=== PATIENT | female | born 1955 | race Caucasian/White ===

== ENCOUNTER → 2017-05-03 | Outpatient (CLI) | payer BC ==
[~2017-05-03] MED LIST: DABI150C PO; DILT120C80 PO; GARL1CAP3 PO; MAGN100T PO; MESA0.372 PO; MULT-208 PO; OMEG-33 PO; PHYT1LIQ MC; PROP225T2 PO
[2017-05-04 20:02] LABS: FREE T4 1.18 ng/dL (0.76-1.46); THYROID STIM HORMONE (TSH) 1.041 uIU/mL (0.358-3.740)
== END | disposition home or self-care (01) ==
LOC: LAB 09:33
PROVIDERS: ATTEND Internal Medicine
DX: G47.33 Obstructive sleep apnea (adult) (pediatric) (principal); R53.82 Chronic fatigue, unspecified; D89.89 Other specified disorders involving the immune mechanism, not elsewhere classified; R65.10 Systemic inflammatory response syndrome (SIRS) of non-infectious origin without acute organ dysfunction; Z77.120 Contact with and (suspected) exposure to mold (toxic)
CPT/HCPCS: 36415; 80061; 82306; 82607; 82728; 83540; 83550; 84439; 84443; 84481; 84630; 86140

== ENCOUNTER → 2017-05-30 | Outpatient (CLI) | payer BC ==
[2017-05-30 09:48] LABS: BASO # 0.1 x10^3/uL (0.0-0.2); BASO % 1 % (0-3); EOS # 0.2 x10^3/uL (0.0-0.7); EOS % 2 % (0-3); HEMATOCRIT 43.1 % (36.0-47.0); HEMOGLOBIN 14.1 g/dL (12.0-15.5); LYMPH # 1.3 x10^3/uL (1.0-4.8); LYMPH % 16 % (24-48); MEAN CORPUSCULAR HEMOGLOBIN 29 pg (25-35); MEAN CORPUSCULAR HGB CONC 33 g/dL (31-37); MEAN CORPUSCULAR VOLUME 89 fL (79-100); MONO # 0.5 x10^3/uL (0.0-1.1); MONO % 6 % (0-9); NEUT # 6.5 x10^3uL (1.8-7.7); NEUT % 75 % (31-73); PLATELET COUNT 261 x10^3/uL (140-400); RED BLOOD COUNT 4.87 x10^6/uL (3.50-5.40); RED CELL DISTRIBUTION WIDTH 14.5 % (11.5-14.5); WHITE BLOOD COUNT 8.6 x10^3/uL (4.0-11.0)
== END | disposition home or self-care (01) ==
LOC: LAB 08:51
PROVIDERS: ATTEND Nurse Practitioner Family
DX: R79.82 Elevated C-reactive protein (CRP) (principal); E61.1 Iron deficiency; Z85.3 Personal history of malignant neoplasm of breast
CPT/HCPCS: 36415; 82728; 83540; 83550; 85027; 86140

== ENCOUNTER → 2017-11-08 | Outpatient (CLI) | payer BC ==
[2017-11-08 12:53] LABS: C REACTIVE PROTEIN 2.9 mg/L (0-3.3)
[2017-11-09 12:10] LABS: INSULIN LEVEL 6.9 uIU/mL (2.6-24.9)
[2017-11-10 06:13] LABS: HOMOCYTSINE LEVEL 8.5 umol/L (0.0-15.0)
== END | disposition home or self-care (01) ==
LOC: LAB 10:27
PROVIDERS: ATTEND General Practice
DX: I48.0 Paroxysmal atrial fibrillation (principal); G62.9 Polyneuropathy, unspecified; K50.90 Crohn's disease, unspecified, without complications; G47.33 Obstructive sleep apnea (adult) (pediatric); R53.83 Other fatigue; R79.82 Elevated C-reactive protein (CRP); F17.200 Nicotine dependence, unspecified, uncomplicated; Z77.018 Contact with and (suspected) exposure to other hazardous metals
CPT/HCPCS: 36415; 82607; 82728; 82947; 83036; 83090; 83525; 83540; 83550; 86140

== ENCOUNTER 2020-11-24 07:33 | Emergency (ER) | payer MEDICARE, BC ==
[~2020-11-24] VITALS: Ht 167.6 cm; Wt 72.7 kg
[~2020-11-24 07:33] MED LIST changes: -DILT120C80 PO; +DILT120C99 PO
--- NOTE | 2020-11-24 07:50 | PHYS DOC ---
Past History Past Medical History: A-Fib Past Surgical History: Other (Cardiac ablation) Smoking: Cigarettes Alcohol Use: None Drug Use: None General Adult EDM: Chief Complaint: Palpitations HPI: HPI: Patient is a 65-year-old female who woke up this morning with heart palpitation and chest pressure. Patient has a history of atrial fibrillation, she had a cardiac ablation on October 2015. Patient is currently on Cardizem and Xarelto . Her shuttle truck driver is at [facility]. Patient denied any cough or fever, no trouble breathing. Patient denies any recent travel or operation. Patient did take her morning dose of Cardizem at home before coming here. Review of Systems: Review of Systems: Constitutional: Denies fever or chills Eyes: Denies change in visual acuity HENT: Denies nasal congestion or sore throat Respiratory: Denies cough or shortness of breath Cardiovascular: Positive for chest pain and heart palpitation. GI: Denies abdominal pain, nausea, vomiting, bloody stools or diarrhea : Denies dysuria Musculoskeletal: Denies back pain or joint pain Integument: Denies rash Neurologic: Denies headache, focal weakness or sensory changes Endocrine: Denies polyuria or polydipsia Lymphatic: Denies swollen glands Psychiatric: Denies depression or anxiety Allergies: Allergies: Allergies Coded Allergies Type Severity Reaction Last Updated Verified Penicillins Allergy Unknown 11/24/20 Yes Uncoded Allergies Type Severity Reaction Last Updated Verified PENICILLIN Allergy Unknown 04/16/15 Physical Exam: PE: Constitutional: Well developed, well nourished, no acute distress, non-toxic appearance. [] HENT: Normocephalic, atraumatic, bilateral external ears normal, oropharynx moist, no oral exudates, nose normal. [] Eyes: PERRLA, EOMI, conjunctiva normal, no discharge. [] Neck: Normal range of motion, no tenderness, supple, no stridor. [] Cardiovascular: Irregular rhythm, tachycardic, no murmur [] Lungs & Thorax: Bilateral breath sounds clear to auscultation [] Abdomen: Bowel sounds normal, soft, no tenderness, no masses, no pulsatile masses. [] Skin: Warm, dry, no erythema, no rash. [] Back: No tenderness, no CVA tenderness. [] Extremities: No tenderness, no cyanosis, no clubbing, ROM intact, no edema. [] Neurologic: Alert and oriented X 3, normal motor function, normal sensory function, no focal deficits noted. [] Psychologic: Affect normal, judgement normal, mood normal. [] EKG: EKG: EKG was done read at 7:43 AM by this physician, heart rate of 130 beats per minute, atrial fibrillation with RVR. No STEMI. Patient was given 20 mg of Cardizem IV bolus, repeat EKG done at 854, heart rate of 62 beats per minute, normal sinus rhythm, Radiology/Procedures: Radiology/Procedures: [][address] [address] IMAGING REPORT Signed PATIENT: TATIANA RENE ACCOUNT: [id number] : 1955 LOCATION: ER AGE: 65 SEX: F EXAM STATUS: REG ER ORD. PHYSICIAN: ELVA LANE DO REASON: chest pain PROCEDURE: PORTABLE CHEST 1V EXAM: CHEST 1 VIEW History: Chest pain COMPARISON: 06/25/2015 TECHNIQUE: Single portable radiograph of the chest FINDINGS: The cardiac silhouette is unremarkable. The lungs are clear bilaterally. The costophrenic sulci are clear and well demarcated. IMPRESSION: No radiographic evidence of an acute cardiopulmonary process. Electronically signed by: Nicolás Miller MD (11/24/2020 8:23 AM) [id number] DICTATED AND SIGNED BY: NICOLÁS MILLER MD DATE: 11/24/20 0820 CC: ELVA LANE DO; CRISTINO MENA ~MTH0 0 Heart Score: Risk Factors: Risk Factors: DM, Current or recent (<one month) smoker, HTN, HLP, family history of CAD, obesity. Risk Scores: Score 0 - 3: 2.5% MACE over next 6 weeks - Discharge Home Score 4 - 6: 20.3% MACE over next 6 weeks - Admit for Clinical Observation Score 7 - 10: 72.7% MACE over next 6 weeks - Early Invasive Strategies Course & Med Decision Making: Course & Med Decision Making Pertinent Labs and Imaging studies reviewed. (See chart for details) Patient is a 65-year-old female with a history of atrial fibrillation, presented to ER with heart palpitation. Patient was felt to be in A. fib with RVR. Patient was given 20 mg of Cardizem IV bolus, and converted her to normal sinus rhythm, patient felt much better now. Patient would like to go home. Patient will be discharged home from the ER, she was instructed to call her shuttle truck driver today to make an appointment so that her shuttle truck driver can readjust her Cardizem. Patient is currently on 180 mg of Cardizem at home. Patient's is here with her who will take her home. They are amenable to plan of care. Dragon Disclaimer: Dragon Disclaimer: This electronic medical record was generated, in whole or in part, using a voice recognition dictation system. Departure Departure: Impression: Primary Impression: Atrial fibrillation with RVR Disposition: 01 DC HOME SELF CARE/HOMELESS Condition: IMPROVED Referrals: CRISTINO MENA (PCP) Please call your shuttle truck driver for reevaluation this week Patient Instructions: Atrial Fibrillation Additional Instructions: Thank you for visiting our Emergency Department. We appreciate you trusting us with your care. If any additional problems come up don't hesitate to return to [facility]. Please follow up with your primary care provider so they can plan additional care if needed and know about the problem that you had. If symptoms worsen come back to the Emergency Department. Any concerning symptoms that start such as chest pain, shortness of air, weakness or numbness on one side of the body, running high fevers or any other concerning symptoms return to the ER. ELVA LANE DO Nov 24, 2020 07:50
[2020-11-24 08:03] LABS: BASO # 0.1 x10^3/uL (0.0-0.2); BASO % 1 % (0-3); EOS # 0.3 x10^3/uL (0.0-0.7); EOS % 4 % (0-3); HEMATOCRIT 35.3 % (36.0-47.0); HEMOGLOBIN 11.3 g/dL (12.0-15.5); LYMPH % 12 % (24-48); MEAN CORPUSCULAR HEMOGLOBIN 27 pg (25-35); MEAN CORPUSCULAR HGB CONC 32 g/dL (31-37); MEAN CORPUSCULAR VOLUME 84 fL (79-100); MONO # 0.7 x10^3/uL (0.0-1.1); MONO % 8 % (0-9); NEUT # 6.4 x10^3uL (1.8-7.7); NEUT % 75 % (31-73); PLATELET COUNT 333 x10^3/uL (140-400); RED BLOOD COUNT 4.19 x10^6/uL (3.50-5.40); RED CELL DISTRIBUTION WIDTH 15.5 % (11.5-14.5); WHITE BLOOD COUNT 8.4 x10^3/uL (4.0-11.0)
[2020-11-24 08:13] LABS: CALCIUM 8.5 mg/dL (8.5-10.1); CREATININE 0.8 mg/dL (0.6-1.0); GFR 71.8; POTASSIUM 3.8 mmol/L (3.5-5.1)
[2020-11-24] MEDS: dilTIAZem 25 MG/5 ML VIAL IVP ONE (08:16)
[2020-11-24 08:25] LABS: ALBUMIN 2.9 g/dL (3.4-5.0); ALBUMIN/GLOBULIN RATIO 0.8 (1.0-1.7); MAGNESIUM 2.2 mg/dL (1.8-2.4); TOTAL BILIRUBIN 0.2 mg/dL (0.2-1.0); TOTAL PROTEIN 6.6 g/dL (6.4-8.2)
--- NOTE | 2020-11-24 08:26 | RAD ---
EXAM: CHEST 1 VIEW History: Chest pain COMPARISON: 06/25/2015 TECHNIQUE: Single portable radiograph of the chest FINDINGS: The cardiac silhouette is unremarkable. The lungs are clear bilaterally. The costophrenic sulci are clear and well demarcated. IMPRESSION: No radiographic evidence of an acute cardiopulmonary process. Electronically signed by: Nicolás Miller MD (11/24/2020 8:23 AM) [id number]
[2020-11-24 08:31] LABS: BACTERIA,URINE 0 /HPF (0-FEW); BILIRUBIN,URINE NEG (NEG); CLARITY,URINE CLEAR; COLOR,URINE COLORLESS; GLUCOSE,URINE NEG (NEG); NITRITE,URINE NEG (NEG); SQUAMOUS EPITHELIAL CELL,UR MOD /LPF; UROBILINOGEN,URINE 0.2 mg/dL (0.2 mg/dL); WBC,URINE OCC /HPF (0-4)
[2020-11-24] MEDS ORDERED: dilTIAZem VIAL 125 MG in IV NORMAL SALINE 100ML 100 ML IV PRN (09:00)
[2020-11-24 09:10] VITALS: BP 126/64
--- NOTE | 2020-11-24 12:07 | EKG ---
[address] [address] Test Date: 2020-11-24 Test Time: 07:38:30 Pat Name: TATIANA RENE Department: Room: Gender: F Can Capper: ARIELLE : 1955 Requested By: ELVA LANE Order Number: [id number] Reading MD: Measurements Intervals [place] Rate: 130 P: [place]: QRS: 45 QRSD: 76 T: 16 QT: 312 QTc: 466 Interpretive Statements IRREGULAR RHYTHM, NO P-WAVE FOUND OTHERWISE NORMAL ECG RI6.02 No previous ECG available for comparison
--- NOTE | 2020-11-24 12:07 | EKG ---
[address] [address] Test Date: 2020-11-24 Test Time: 08:54:02 Pat Name: TATIANA RENE Department: Room: Gender: F Legal Operations Manager: ARIELLE : 1955 Requested By: ELVA LANE Order Number: [id number] Reading MD: Measurements Intervals [place] Rate: 62 P: 42 WI: 166 QRS: 37 QRSD: 78 T: 21 QT: 408 QTc: 416 Interpretive Statements SINUS RHYTHM OTHERWISE NORMAL ECG RI6.02 Compared to ECG 11/24/2020 07:38:30 No significant changes
== END 2020-11-24 09:39 | disposition home or self-care (01) ==
LOC: ER 07:33
DX: I48.20 Chronic atrial fibrillation, unspecified (principal); F17.210 Nicotine dependence, cigarettes, uncomplicated; Z88.0 Allergy status to penicillin
CPT/HCPCS: 36415; 71045; 80053; 81001; 83735; 83880; 84484; 85025; 93005; 96374; 99285; J3490

== ENCOUNTER → 2022-02-16 | Outpatient (CLI) | payer MEDICARE, BC ==
--- NOTE | 2022-02-16 18:57 | RAD ---
Three-view acute abdominal series. HISTORY: History of Crohn's, evaluate for obstruction 3 views were taken for an acute abdominal series. Lungs are clear. Heart is normal in size. There is no effusion. Upright view was taken of the abdomen. There is no free air. There are a few nonspecific air-fluid le vels mainly on the right. Supine views were taken of the abdomen. 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 There is gas in the right colon. There is minimal gas in small bowel loops without obstruction. IMPRESSION: 1. No acute chest disease. 2. Nonspecific gas pattern without obstruction. Electronically signed by: Dillon Javed MD (02/16/2022 6:54 PM) [facility]
== END ==
LOC: RAD 12:42
PROVIDERS: ATTEND Internal Medicine Gastroenterology
DX: D25.9 Leiomyoma of uterus, unspecified (principal); Z87.19 Personal history of other diseases of the digestive system
CPT/HCPCS: 74022